=== PATIENT | female | born 1985 ===

== ENCOUNTER 2025-03-26 08:30 | Outpatient (AMB) | payer MEDICAID, SELFPAY ==
[2025-03-26 08:47] VITALS: BP 126/78; PULSE 92; RESP 18; TEMP 36.3; O2SAT 97; BMI 35.9
--- NOTE | 2025-03-26 08:47 | OBCLNT_ITS ---
Vital Signs 03/26/25 08:47 Height 1.52 m Height Method Stated Weight 83.518 kg Weight Measurement Method Standing Scale BMI 35.9 BP 126/78 Blood Pressure Source Automatic Cuff Blood Pressure Location Left Upper Arm Position Sitting Respiration 18 Pulse 92 Pulse Source Monitor Temp 97.3 F Temp Source Oral Pulse Oximetry (%) 97 Oxygen Delivery Method Room Air Allergies/Home Meds Allergies & Medications Allergies No Known Allergies Allergy (Verified 03/26/25 08:48) Medication Reconciliation vitamins-iron fumarate 66 mg iron-folic acid 1 mg tablet tab PO 03/26/25 [History Confirmed 03/26/25] Intake Visit Data Collection New Patient or Established: New Patient (never been to [facility]) Reason for Visit:: TRANSFER INITIAL CARE Seen by Clinical Staff ONLY (RN/MA): No Cooker Casing Required: No Do You Feel Safe at Home: Yes Authorities Contacted: N/A PCP or OBGYN visit in last 3 months: Yes Hx Now: Yes Are you currently on any form of Control: No Last menstrual period: 09/26/24 Pain Present Currently: No Pain Scale Used: Sawyer-Loja/Numerical Pain scale:: 0 Smoking Status Smoking Status: Never smoker Immunizations Flu Vaccine in the Last 12 Months: Yes Flu Vaccine Exclusion Criteria: Already Received Questionnaires Covid-19 Vaccine Questionnaire Has patient been vacinated for Covid-19 Have you been vacinated for Covid-19: Yes PHQ-9 PHQ-2 Over the last 2 weeks, how often have you been bothered by any of the following problems? 1. Little interest or pleasure in doing things: not at all 2. Feeling down, depressed, or hopeless: not at all Total score: 0 PHQ-9 3. Trouble falling or staying asleep, or sleeping too much: Not at all 4. Feeling tired or having little energy: Not at all 5. Poor appetite or overeating: Not at all 6. Feeling bad about yourself - or that you are a failure or have let yourself or your family down: Not at all 7. Trouble concentrating on things, such as reading the newspaper or watching television: Not at all 8. Moving or speaking so slowly that other people could have noticed? - Or the opposite - being so fidgety or restless that you have been moving around a lot more than usual: not at all 9. Thoughts that you would be better off or of hurting yourself in some way: Not at all Total score: 0 Source: Developed by Drs. Justen Chawla, Devi Faye, Yossi Roche and colleagues, with an educational bo from [employer]. Depression screen completed yes Social History Living Situation History Marital Status: Lives With: Family Housing: House Tobacco History Smoking Status: Never smoker Second Hand Smoke Exposure: No Alcohol History Alcohol Intake: Never Domestic Abuse History Do You Feel Safe at Home: Yes OB Initial Visit OB Flowsheet OB Flowsheet Initial Weight: Not Recorded Date -?-?-?-?-?-?-?-?-?-?-?-?- EGA Weight BP Alb Glu CTX Pres Fundal ht FHR Mov Dilation Station Effacement Hx Notes Visit Note 03/26/25 -?-?-?-?-?-?-?-?-?-?-?-?- 25w 6d 83.518 kg 126/78 absent unknown 25 145 active Will be transferred from [facility]. With records. 39-year-old 4 para 3 she is 25 weeks 6 by dates and LMP. Labs were normal so far. Patient has a follow- up with [facility] April 08. OBI kareem pichardo. Reviewed records. Patient has a follow-up with [facility] April 08. Discussed labor precautions. Continue prenatals. Return in 4 weeks for OB check and will call for third trimester labs Menstrual History Menstrual reliability: definite Flow: normal Menstrual regularity: regular Monthly: Yes On control pills at conception: No Associated symptoms (LMP): Denies amenorrhea, nausea, vomiting, fatigue, breast tenderness, urinary frequency, irritability, bloating or other OB History : 4 Para: 3 # of Living Children: 3 Delivery History 1st : Child's name: JIN date: 07/30/13 sex: male Gestational age at delivery (weeks): 40 Delivery type: vaginal Delivery complications: NONE History of depression before or after : No 2nd : Child's name: ASHLYN date: 02/02/16 sex: female Gestational age at delivery (weeks): 40 Delivery type: vaginal Delivery complications: NONE History of depression before or after : No 3rd : Child's name: EDGAR date: 01/11/18 sex: male Gestational age at delivery (weeks): 40 Delivery type: vaginal Delivery complications: NONE History of depression before or after : No Infection History & Risk Evaluation History of STDs: none Genetic Screening & History Genetic Screening/Teratology Counseling - Includes patient, baby's father, or anyone in either family with: 1. Patient's age 35 years or older as of estimated date of delivery: Yes 2. Thalassemia (Amharic, Togolese, Mediterranean, or Background); MCV less than 80: No 3. Neural Tube Defect (Meningomyelocele, Spina Bifida, or Anencephaly): No 4. Congenital Heart Defect: No 5. Down Syndrome: No 6. Dionicio-Sachs (Ashkenazi Oriental Orthodox, Cajun, Macedonian Palestinian): No 7. Zoe Disease (Ashkenazi Oriental Orthodox): No 8. Familial Dysautonomia (Ashkenazi Oriental Orthodox): No 9. Sickle Cell Disease or Trait (): No 10. Hemophilia or other blood disorders: No 11. Muscular Dystrophy: No 12. Cystic Fibrosis: No 13. [place] Chorea: No 14. Mental Retardation/Autism: No 15. Other inherited genetic or chromosomal disorder: No 16. Maternal Metabolic Disorder (EG,TYPE 1 Diabetes, PKU): No 17. Patient or baby's father had a child with defects not listed above: No 18. Recurrent loss or a stillbirth: No 19. Medications (including supplements, vitamins, herbs or otc drugs)/illicit/recreational drugs/alcohol since last menstrual period: No 20. Any other: No Infection History 1. Live with someone with TB or exposed to TB: No 2. Rash or viral illness since last menstrual period: No 3. Hepatitis B,C: No Other (see comments) Source: [employer] Review of Systems Review of Systems Systems Reviewed: All systems reviewed, normal except as documented Constitutional Constitutional: Denies fatigue Gastrointestinal Gastrointestinal: Denies bloating, Denies nausea and Denies vomiting Genitourinary Genitourinary: Denies amenorrhea and Denies urinary frequency Psychiatric Psychiatric: Denies irritability Endocrine Endocrine: Denies fatigue Exam General Limitations: no limitations General Appearance: alert, in no apparent distress, comfortable, cooperative, healthy appearing, well developed and well groomed Head Head exam: atraumatic, normocephalic and normal inspection Neck Neck exam: Present normal inspection, full ROM and trachea midline Chest Chest inspection: Present normal inspection and symmetric chest wall rise Resp Respiratory exam: Present normal lung sounds bilaterally Card Cardiovascular exam: Present regular rate, normal rhythm and normal heart sounds Abdominal Abdominal exam: Present soft and normal bowel sounds Psych Psychiatric exam: Present normal affect and normal mood Office Procedures OBC Clinic LOC & Office Proc's Nursing/Assessment Patient Status: Initial/New Patient OB Clinic Nursing Assessment: Medication Reconciliation, Update PMH in EMR and Vital Signs OB Clinic Coordination of Care: AMA, Complex Care and Chronic Disease 1-5, Consent,records obtained, informed consent, Education Simp Pt/Fam, 1 Ins Authorization, Lab and Imaging orders, Results/Orders obtained and Staff clarify orders Special Needs: Heart tones New Patient Charge New Patient Point Assignment: [id number] New Patient Point Charge: BOX TOE MAKER Level 5 (1159-[id number]) Assessment & Plan Diagnosis / Problem List (1) Encounter for supervision of high risk in third trimester, antepartum: Status: Acute (2) Advanced maternal age (AMA) in : Status: Acute Plan OB I transferred today. Reviewed labs. Call for 1 hour. Keep appointment with [facility] April 08. Discussed labor precautions and return in 4 weeks OB check Additional Plan Follow Up: 4 Weeks (obc)
== END 2025-03-26 09:04 | disposition home or self-care (01) ==
LOC: HODSOBC 08:30
PROVIDERS: Supervising Provider Advanced Practice Midwife; Visit Provider Advanced Practice Midwife
DX: O09.522 Supervision of elderly multigravida, second trimester (principal); Z3A.25 25 weeks gestation of pregnancy
CPT/HCPCS: 99205; G0463

== ENCOUNTER 2025-04-22 09:09 | Outpatient (AMB) | payer MEDICAID, SELFPAY ==
[2025-04-22 09:34] VITALS: BP 124/80; PULSE 98; RESP 18; TEMP 36.8; O2SAT 98; BMI 36.1
--- NOTE | 2025-04-22 09:34 | AMB.OBPNC ---
Vital Signs 04/22/25 09:34 Height 1.52 m Height Method Stated Weight 83.574 kg Weight Measurement Method Standing Scale BMI 36.1 BP 124/80 Blood Pressure Source Automatic Cuff Blood Pressure Location Left Upper Arm Position Sitting Respiration 18 Pulse 98 Pulse Source Monitor Temp 98.2 F Temp Source Oral Pulse Oximetry (%) 98 Oxygen Delivery Method Room Air Allergies/Home Meds Allergies & Medications Allergies No Known Allergies Allergy (Verified 04/22/25 09:35) Medication Reconciliation vitamins-iron fumarate 66 mg iron-folic acid 1 mg tablet tab PO 03/26/25 [History Confirmed 04/22/25] blood sugar diagnostic (Blood Glucose Test strips) #50 ea 04/22/25 [Rx Confirmed 04/22/25] blood-glucose meter #1 ea 04/22/25 [Rx Confirmed 04/22/25] lancets #100 ea 04/22/25 [Rx Confirmed 04/22/25] Immunizations Immunizations Flu Vaccine in the Last 12 Months: No Flu Vaccine Exclusion Criteria: No Exclusion Criteria Care OB Visit Log OB Flowsheet Initial Weight: Not Recorded Date <del>?</del> EGA Weight BP Alb Glu CTX Pres Fundal ht FHR Mov Dilation Station Effacement Hx Notes Visit Note 03/26/25 <del>?</del> 25w 6d 83.518 kg 126/78 absent unknown 25 145 active Will be transferred from [facility]. With records. 39-year-old 4 para 3 she is 25 weeks 6 by dates and LMP. Labs were normal so far. Patient has a follow-up with [facility] April 08. OBI today. Reviewed records. Patient has a follow-up with [facility] April 08. Discussed labor precautions. Continue prenatals. Return in 4 weeks for OB check and will call for third trimester labs 04/22/25 <del>?</del> 29w 5d 83.574 kg 124/80 absent unknown 29 145 active Reports good movement. Denies leaking or bleeding. Denies contractions. Patient is currently monitoring her blood sugars at home. She has a previous history of GDM last . She understands GDM diet. And her sugars are at goal about 85% of the time. Fastings were normal Reviewed 3-hour GTT results with patient. We reviewed GDM diet. Patient to walk 40 minutes a day and 10 minutes after meals. I ordered weekly NST BPP to start at 32 weeks. Then we discussed her ultrasound with Dr. Potter. And after consult with OB staff the decision was made to transfer patient of care to Dr. Cheng for higher level of care. That was and relayed to the patient and she stated understanding. And she will do labor prevention methods and continue on her diet and return for OB check in 3 weeks if she does not have an appointment with Dr. Cheng. IRIS Calculator Estimated Delivery Date Method Current WG Current Estimate 07/03/25 LMP (Certain) 29w 5d Other Estimates 07/02/25 Ultrasound #1 29w 6d 07/07/25 Ultrasound #2 29w 1d 07/03/25 Manual 29w 5d final iris 07/03/25, 04/09: IUP 27w5,88% Notes Visit Date: 04/22/25 Last Updated by: Elisabeth Capone CNM 3 hr gtt: abnormal, 1 hr/2 hr high. 04/08/25 f/u sono with Dr Potter: IUP at 27 weeks 5 days. Baby growing 88th percentile. Large VSD that was interventricular was seen. No other cardiac anomalies. echo was abnormal. The VSD was seen at that time also. Heart rate was normal rate and rhythm. And Doppler studies were normal as well. Consult with OB was done. And patient transferred to Dr. Cheng to assume care based on need for higher level of care Visit Date: 03/26/25 Last Updated by: Elisabeth Capone CNM 39 yo lmp 09/26/24. EDC 07/03/25, O+,abs-, rpr;;nr, rub imm, hbsag-,hiv-, HC-, GC/CT- UA-,UT-, nipt/carrier and AFP- 1 hr gtt: 172, A1c: 5.1, RPR::NR, . Do 3 hr gtt Office Procedures OBC Clinic LOC & Office Proc's Nursing/Assessment Patient Status: Established Patient OB Clinic Nursing Assessment: Medication Reconciliation, Update PMH in EMR and Vital Signs OB Clinic Coordination of Care: Complex Care and Chronic Disease 1-5, Consent,records obtained, informed consent, Education Simp Pt/Fam, Lab and Imaging orders, Results/Orders obtained and Staff clarify orders Special Needs: Heart tones Established Patient Charge Established Patient Point Assignment: 135 Established Patient Point Charge: EP Level 4 (120-155) Assessment & Plan Diagnosis / Problem List (1) Diet controlled gestational diabetes mellitus (GDM) in third trimester: Status: Acute (2) Advanced maternal age (AMA) in : Status: Acute (3) Encounter for supervision of high risk in third trimester, antepartum: Status: Acute Plan Discussed GTT results with patient. She is to continue monitoring sugars. I ordered weekly NST BPP. Discussed labor precautions. We reviewed GDM diet. Patient to walk 40 minutes daily and 10 minutes after each meal. Continue to log sugars. Discussed ultrasound results and the VSD with patient. And patient was made a referral to Dr. Cheng to assume care. Patient will continue with OB checks and stay till she has her appointment with Dr. Cheng. And I stressed the importance of going to [facility] if she has any problems with the fetus or signs of labor or anything like that. So return in 3 weeks OB check Additional Plan Follow Up: 3 Weeks (obc)
== END 2025-04-22 09:51 | disposition home or self-care (01) ==
LOC: HODSOBC 09:09
PROVIDERS: Supervising Provider Advanced Practice Midwife; Visit Provider Advanced Practice Midwife
DX: O09.893 Supervision of other high risk pregnancies, third trimester (principal); O24.410 Gestational diabetes mellitus in pregnancy, diet controlled; O09.523 Supervision of elderly multigravida, third trimester; Z3A.29 29 weeks gestation of pregnancy
CPT/HCPCS: 99214; G0463